=== PATIENT | male | born 1980 | race Caucasian/White ===

== ENCOUNTER 2017-12-31 18:24 | Emergency (ER) | payer SELFPAY ==
[~2017-12-31] VITALS: Ht 195.6 cm; Wt 186.0 kg
[2017-12-31] MEDS ORDERED: BUPIVACAINE 0.5% 50 ML VIAL. INJ ONE (20:30)
[2017-12-31] MEDS ORDERED: LIDOCAINE 1% PF 30 ML VIAL. INJ ONE (20:30)
[2017-12-31 21:54] VITALS: BP 107/77
[2017-12-31] MEDS ORDERED: NEOMY/BACITR/POLYMYXIN OINT PACKET. TP ONE (22:30)
[2017-12-31] MEDS ORDERED: ceFAZolin IM 1 GM VIAL IM ONE (22:30)
[2017-12-31] MEDS ORDERED: DOXY100C2 PO (22:33)
[2017-12-31] MEDS ORDERED: HYDR-2758 PO (22:33)
--- NOTE | 2017-12-31 22:34 | PHYS DOC ---
Past Medical History Past Medical History: Diabetes-Type II Past Surgical History: No Surgical History Alcohol Use: Rarely Drug Use: None Adult General Chief Complaint Chief Complaint: PARTIAL AMPUTATION/AVULSION HPI HPI Patient is a 37 year old male who presents to the emergency room with complaints of a partial finger amputation to his left middle finger. Patient states that approximately 1814 he had a speaker box fall on top of his left hand. He states that his last tetanus was within last 5 years. He reports significant pain of his left middle finger currently rates it 10 out of 10 on the pain scale. Patient states he drove himself to the emergency room. Patient states his only medical history is that he is a type II diabetic and he is overweight. He reports that he is allergic to Indocin states, states he has not taken anything for relief of his pain. Review of Systems Review of Systems Constitutional: Denies fever or chills [] Musculoskeletal: Reports pain and partial amputation of left hand third digit after speaker box fell on top of his hand Integument: Denies rash reports laceration to left hand third digit and to the nail bed of the third digit on his left hand. Neurologic: Denies headache, focal weakness or sensory changes [] All other systems were reviewed and found to be within normal limits, except as documented in this note. Current Medications Current Medications Current Medications Medications (Trade) Dose Ordered Sig/[facility] Start Time Stop Time Status Last Admin Dose Admin Bupivacaine HCl (Marcaine 0.5%) 50 ml 1X ONCE 12/31/17 20:30 12/31/17 20:31 DC 12/31/17 20:30 50 ML Cefazolin Sodium (Ancef Im) 1 gm 1X ONCE 12/31/17 22:30 12/31/17 22:31 DC 12/31/17 22:34 1 GM Lidocaine HCl (Xylocaine 1% Pf 30ml Vial) 20 ml 1X ONCE 12/31/17 20:30 12/31/17 20:31 DC 12/31/17 20:30 20 ML Neomycin/ Polymyxin/ Bacitracin (Triple Antibiotic Ointment) 3 pkt 1X ONCE 12/31/17 22:30 12/31/17 22:31 DC 12/31/17 22:34 3 PKT Allergies Allergies Allergies Coded Allergies Type Severity Reaction Last Updated Verified NSAIDS (Non-Steroidal Anti-Inflamma Allergy Unknown 12/31/17 Yes Physical Exam Physical Exam Constitutional: Well developed, well nourished, no acute distress, non-toxic appearance. [] HENT: Normocephalic, atraumatic, nose normal. [] Eyes: PERRLA, conjunctiva normal, no discharge. [] Lungs & Thorax: Regular, even respirations Skin: Warm, dry, no rash; there coop an. phalanx of the left hand third digit that is approximately 1.5 cm in diameter, the laceration extends to the medial portion of the finger [] Extremities: no cyanosis, no edema, the third digit of the left hand is noted to have open fracture, and is tender to the touch. Bleeding controlled by patient holding pressure. Neurologic: Alert and oriented X 3, normal motor function, normal sensory function, no focal deficits noted. [] Psychologic: Affect normal, judgement normal, mood normal. [] Current Patient Data Vital Signs Vital Signs Date Time Temp Pulse Resp B/P (MAP) Pulse Ox O2 Delivery O2 Flow Rate FiO2 12/31/17 21:54 94 16 107/77 (87) 95 Room Air 12/31/17 19:07 97.5 97.5 EKG EKG [] Radiology/Procedures Radiology/Procedures X-ray- L hand 3rd digit films reveal acute fracture of distal phalanx read by Dr. Young Laceration Repair by me: Anesthesia: Mixture of 5 mL of 1% lidocaine and 5 mL of 0.5% bupivacaine was administered to the base of the third finger of the left hand Location: Distal phalanx of left hand third digit, Tendon/Joint/Nerves: open fracture to distal phalax, no tendon injury Foreign body: None detected after copious irrigation and exploration with 250 ml of normal saline Technique: nailbed was approximated with 5 Simple Interrupted Sutures with 4. 0 Vicryl, the medial aspect of the L hand 3rd digit was approximated with 3 interrupted sutures with 5.0 ethilon. Complexity: Complex, the patient's fingernail was removed and placed in sterile water until the transverse laceration of nailbed was repaired, finger nail was then inserted back into the matrix by Dr. Young who secured the fingernail into the repaired bed with a figure 8 stitch using 5.0 ethilon. Post Closure Length: 2.0 cm Patient's bleeding was easily controlled in the department and there is no indication of anemia. No evidence of compartment syndrome, neurologic injury, vascular injury, open joint, tendon laceration, or foreign body. Patient is appropriate for outpatient follow up. 48 hour wound check. ER PHYSICIAN ATTENDING NOTE: I have personally seen and examined the patient, and agree with the history, physical exam, and plan, as documented by mid-level provider. The patient presented with a nail bed laceration. There is no amputation. Course & Med Decision Making Course & Med Decision Making Pertinent Labs and Imaging studies reviewed. (See chart for details) Patient is a 37-year-old male who presented to the emergency room with complaint of left hand third digit pain and laceration to fingernail after a speaker box fell on top of his hand. VSS, patient was up-to-date on his tetanus states it was within the last 5 years. X-ray revealed a fracture of the distal phalanx of the third digit of the left hand, it is an open fracture. Complex wound closure was conducted by myself and Dr. Young as described above. Patient was placed in a bulky sterile dressing after antibiotic ointment was applied by RN. Patient was then placed in a aluminum finger splint. Patient verbalizes an understanding of discharge instructions, home care, medications, and follow-up instructions. He was in agreement with plan of care. Patient was given the phone number for the hand and upper extremity field identification specialist at [facility] her phone number is [phone] Maurizio Disclaimer Maurizio Disclaimer This electronic medical record was generated, in whole or in part, using a voice recognition dictation system. Departure Departure Impression: Primary Impression: Open fracture of distal phalanx of middle finger Additional Impression: Nailbed laceration, finger Disposition: 01 HOME, SELF-CARE Condition: STABLE Referrals: NO PCP (PCP) Patient Instructions: Finger Fracture, [id number], Nail Bed Laceration, Complex Additional Instructions: Fill the prescriptions and use as directed. Call [facility] hand and upper extremity specialists at [phone] tomorrow morning to arrange follow up. Keep the dressing that was applied in the ER on for the next 24 hours, then change the dressing and apply topical antibiotic ointment once daily. You may take ibuprofen in addition to the pain medication you were prescribed. Return to the ER if your symptoms worsen. Scripts Hydrocodone Bit/Acetaminophen (HYDROCODONE-APAP 5-325 ) 1 Each Tablet 1-2 TAB PO PRN Q6HRS PRN for PAIN for 5 Days, #20 TAB 0 Refills Prov: ALEX MATHEW APRN 12/31/17 Doxycycline Hyclate (DOXYCYCLINE HYCLATE) 100 Mg Capsule 1 CAP PO BID for 7 Days, #14 CAP 0 Refills Prov: ALEX MATHEW APRN 12/31/17 Problem Qualifiers Primary Impression: Open fracture of distal phalanx of middle finger Encounter type: initial encounter Laterality: left Additional Impression: Nailbed laceration, finger Encounter type: initial encounter Qualified Codes: S61.319A - Laceration without foreign body of unspecified finger with damage to nail, initial encounter ALEX MATHEW APRN Dec 31, 2017 22:34 KWAME YOUNG MD Jan 01, 2018 04:10
--- NOTE | 2018-01-01 08:19 | RAD ---
EXAM: 3 views left middle finger DATE: 12/31/2017 7:57 PM INDICATION: PT STATES HEAVY OBJECT LANDED ON 3RD DIGIT OF LEFT HAND. DEFORMITY TO DISTAL END OF FINGER COMPARISON: No Prior FINDINGS/ IMPRESSION: Essentially nondisplaced tuft fracture of the left middle finger with associated overlying irregularity of the nail and nailbed. Moderate associated soft tissue swelling. Electronically signed by: Howard Ramos MD (01/01/2018 8:16 AM) [facility]
== END 2017-12-31 22:52 | disposition home or self-care (01) ==
LOC: ER 18:24
DX: S62.633B Displaced fracture of distal phalanx of left middle finger, initial encounter for open fracture (principal); S61.313A Laceration without foreign body of left middle finger with damage to nail, initial encounter; E11.9 Type 2 diabetes mellitus without complications; Z88.8 Allergy status to other drugs, medicaments and biological substances; W20.8XXA Other cause of strike by thrown, projected or falling object, initial encounter; Y93.89 Activity, other specified; Y92.89 Other specified places as the place of occurrence of the external cause; Y99.8 Other external cause status
CPT/HCPCS: 11760; 73140; 96372; 99284; J0690; J3490; 12001